=== PATIENT | male | born 1985 | race Caucasian/White ===

== ENCOUNTER 2019-08-26 11:26 | Emergency (ER) | payer OTHER ==
[2019-08-26 11:34] VITALS: BP 146/94
--- NOTE | 2019-08-26 12:08 | XRAY Report ---
Reason: pain, non traumatic Procedure Date: 08/26/2019 Accession Number: [id number] / [id number] Procedure: XR - Shoulder 3 View RT CPT Code: FULL RESULT: EXAM: RIGHT SHOULDER RADIOGRAPHY EXAM DATE: 08/26/2019 11:45 AM. CLINICAL HISTORY: Pain, non-traumatic. COMPARISON: None. TECHNIQUE: 3 views. FINDINGS: Bones: Normal. No fracture or bone lesion. Joints: The glenohumeral and acromioclavicular joints are normal. Soft tissues: The visualized hemithorax is unremarkable. No soft tissue swelling. IMPRESSION: Normal shoulder radiography. [facility]
--- NOTE | 2019-08-26 12:13 | ED Physician Documentation ---
PD HPI UPPER EXT INJURY - Stated complaint Stated Complaint: RT SHOULDER PX - Chief complaint Chief Complaint: Ext Problem - History obtained from History obtained from: Patient - History of Present Illness Location: Right (He was working out of the gym yesterday on his shoulders. It really was not bothering him until he picked up his daughter today and now has a pain across the front of the shoulder. Its minimal at rest but hurts if he lifts his arm. No significant injury per se.) Review of Systems Constitutional: denies: Fever, Chills Cardiac: reports: Reviewed and negative Respiratory: reports: Reviewed and negative PD PAST MEDICAL HISTORY - Past Medical History Past Medical History: Yes : Kidney stones - Past Surgical History Past Surgical History: Yes HEENT: Tonsil/Adenoidectomy - Present Medications Home Medications: Ambulatory Orders Medication Instructions Recorded Confirmed No Known Home Medications 12/20/13 12/20/13 - Allergies Allergies/Adverse Reactions: Allergies Allergy/AdvReac Type Severity Reaction Status Date / Time No Known Drug Allergies Allergy Verified 08/26/19 11:34 - Social History Does the pt smoke?: Yes Smoking Status: Current every day smoker Does the pt drink ETOH?: Yes Does the pt have substance abuse?: No - POLST Patient has POLST: No PD ED PE NORMAL - Vitals Vital signs reviewed: Yes - General General: Alert and oriented X 3, No acute distress - Extremities Extremities: Other (Very mild tenderness of the glenohumeral joints of the right shoulder, no deformity. He can abduct to about 90 degrees actively, does better passively. Negative supraspinatus testing, external rotation with resistance is painless but internal rotation with resistance is painful. Strength is still good though.) - Neuro Neuro: Alert and oriented X 3, Normal speech Results - Vitals Vitals: Vital Signs - 24 hr 08/26/19 11:31 Temperature 36.8 C Heart Rate 77 Respiratory 14 Rate Blood Pressure 146/94 H O2 Saturation 99 Oxygen O2 Source Room air - Rads (name of study) R shoulder XR Radiology: EMP read contemporaneously (normal) PD MEDICAL DECISION MAKING - ED course ED course: 34-year-old gentleman with right shoulder pain. Relatively atraumatic. Exam most consistent with a mild rotator cuff tendinitis. No indication for urgent x-rays as the problem will not be bony per se. He did need any pain medicine. Departure - Departure Disposition: 01 Home, Self Care Clinical Impression: Right rotator cuff tendinitis Condition: Good Record reviewed to determine appropriate education?: Yes Instructions: ED Tendinitis Rotator Cuff Comments: Do the exercises as shown, follow-up with your doctor after the weekend if not better. Return for new worsening symptoms. Ibuprofen as needed for pain. Relative rest of the right arm for at least a few days. Discharge Date/Time: 08/26/19 12:20
== END 2019-08-26 12:20 | disposition home or self-care (01) ==
LOC: ED 11:26
DX: M70.811 Other soft tissue disorders related to use, overuse and pressure, right shoulder (principal); Y93.B9 Activity, other involving muscle strengthening exercises; Y92.39 Other specified sports and athletic area as the place of occurrence of the external cause; F17.200 Nicotine dependence, unspecified, uncomplicated
CPT/HCPCS: 99282; 99283

== ENCOUNTER 2022-12-30 16:58 | Emergency (ER) | payer OTHER ==
[2022-12-30] MEDS ORDERED: AMOX/CLAV 875 MG/125 MG TABLET PO STA (18:02)
--- NOTE | 2022-12-30 18:04 | ED Physician Documentation ---
History of Present Illness - Stated complaint Stated Complaint: BILAT HAND LAC - Chief complaint Chief Complaint: Laceration - History obtained from History obtained from: Patient, Family - History of Present Illness Timing: Today Pain level max: 1 Pain level now: 1 - Additonal information Additional information: 37-year-old male presents to the emergency department complaining of a dog bite to the bilateral hands. He has a toy German garcia. There are two small punctures, one on the right hand and one on the left. Concerned about potential infection. This occurred about one hour prior to arrival. He Has an up-to-date tetanus shot. No other acute injuries. Patient is right handed. Review of Systems Constitutional: denies: Fever GI: denies: Vomiting PD PAST MEDICAL HISTORY - Past Medical History Past Medical History: No : Kidney stones - Past Surgical History Past Surgical History: Yes HEENT: Tonsil/Adenoidectomy - Present Medications Home Medications: Ambulatory Orders Medication Instructions Recorded Confirmed Amox/Clav 875/125 [Augmentin] 1 tab PO Q12H #14 tablet 12/30/22 - Allergies Allergies/Adverse Reactions: Allergies Allergy/AdvReac Type Severity Reaction Status Date / Time No Known Drug Allergies Allergy Verified 08/26/19 11:34 - Social History Does the pt smoke?: No Smoking Status: Never smoker Does the pt drink ETOH?: Yes Does the pt have substance abuse?: No - Immunizations Immunizations are current?: Yes - POLST Patient has POLST: No PD ED PE NORMAL - Vitals Vital signs reviewed: Yes - General General: Alert and oriented X 3, No acute distress - Derm Derm: Warm and dry - Extremities Extremities: Other (Small puncture wound in the web space between the second and third digit on the right hand. Also a small puncture wound on the palmar aspect of their left hand. NVI. No bony tenderness. FROM without pain.) - Neuro Neuro: Alert and oriented X 3 Results - Vitals Vitals: Vital Signs - 24 hr 12/30/22 12/30/22 17:02 18:14 Temperature 36.4 C L Heart Rate 86 91 Respiratory 16 Rate Blood Pressure 140/99 H O2 Saturation 99 Oxygen O2 Source Room air PD Medical Decision Making - ED course Complexity details: considered differential, d/w patient ED course: Wounds were cleansed and bandaged. We will place the patient on Augmentin for home. Tetanus up-to-date. Warning of infection and signs of infection were giving at bedside. No indication for xrayPatient counseled regarding signs and symptoms for which I believe an urgent reevaluation would be necessary. Patient with good understanding of and agreement to plan and is comfortable going home at this time. Departure - Departure Disposition: Home, Self Care Clinical Impression: Dog bite Qualifiers: Encounter type: initial encounter Qualified Code(s): W54.0XXA - Bitten by dog, initial encounter Condition: Good Instructions: ED Bite Dog Follow-Up: your,doctor as needed [Other] Prescriptions: Amox/Clav 875/125 [Augmentin] 1 tab PO Q12H #14 tablet Comments: Please take all antibiotics until gone. Please keep the wounds clean. Return for redness, swelling or drainage from the wound. Your prescription was sent to [facility] in [place] Discharge Date/Time: 12/30/22 18:14
[2022-12-30 18:15] VITALS: BP 140/99
== END 2022-12-30 18:14 | disposition home or self-care (01) ==
LOC: ED 16:58
DX: S61.452A Open bite of left hand, initial encounter (principal); S61.451A Open bite of right hand, initial encounter; W54.0XXA Bitten by dog, initial encounter
CPT/HCPCS: 99282; 99283; A9270

== ENCOUNTER 2023-12-15 07:17 | Day surgery (SDC) | payer OTHER ==
[2023-12-15] MEDS: LACTATED RINGERS 1,000 ML IV ONE ×2 (07:22→09:25)
[2023-12-15] MEDS ORDERED: LIDOCAINE-MPF 1% 30 ML VIAL ONE (08:13)
[2023-12-15] MEDS: LIDOCAINE 1% 50 ML MDV SUBQ ONE ×2 (08:15)
--- NOTE | 2023-12-15 08:23 | ANESTHESIA ---
Pre-Anesthesia VS, & Labs - Diagnosis DESIRES STERILIZATION - Procedure BILATERAL VASECTOMY Vital Signs: Temp Pulse Resp BP Pulse Ox O2 Flow Rate 36.4 C L 76 22 131/71 H 98 12/15/23 07:29 12/15/23 07:29 12/15/23 07:29 12/15/23 07:29 12/15/23 07:29 Height: 5 ft 9 in Weight (kg): 89 kg Body Mass Index: 29.0 BMI Classification: Overweight - NPO Last Fluid Intake: 0530 Home Medications and Allergies Home Medications: Ambulatory Orders No Known Home Medications 12/15/23 No Known Home Medications 12/15/23 Allergies/Adverse Reactions: Allergies Allergy/AdvReac Type Severity Reaction Status Date / Time No Known Drug Allergies Allergy Verified 12/15/23 07:38 Anes History & Medical History - Anesthetic History Anesthesia Complications: reports: No previous complications Family history of Anesthesia Complications: Denies Family history of Malignant Hyperthermia: Denies - Medical History Cardiovascular: reports: None Pulmonary: reports: None Gastrointestinal: reports: None Urinary: reports: Kidney stones Musculoskeletal: reports: None Endocrine/Autoimmune: reports: None Skin: reports: None Smoking Status: Never smoker Psychosocial: reports: Alcohol (OCCASIONAL) - Surgical History Eyes Ears Nose Throat (EENT): reports: Tonsil/Adenoidectomy Urologic: reports: Ureterolithotomy (stones) Results - EKG Results EKG Comparison: Reviewed EKG Exam General: Alert Dental: WNL Mouth Openin Fingerbreadth Neck Mobility: Normal Mallampati classification: I Thyromental Distance: 4-6 cm Respiratory: Lungs clear Cardiovascular: Regular rate Plan Anesthesia Type: General Consent for Procedure(s) Verified and Reviewed: Yes Code Status: Attempt Resuscitation ASA classification: 1-Healthy patient Is this case an emergency?: No
[2023-12-15] MEDS ORDERED: HYDROmorphone 0.5 MG/0.5 ML SYRINGE IVP PRN (08:30)
[2023-12-15] MEDS ORDERED: ePHEDrine 50 MG/ML VIAL IVP PRN (08:30)
[2023-12-15] MEDS ORDERED: METOCLOPRAMIDE 10 MG/2 ML VIAL IVP PRN (08:30)
[2023-12-15] MEDS ORDERED: ONDANSETRON 4 MG/2 ML VIAL IVP PRN ×2 (08:30→09:19)
[2023-12-15] MEDS ORDERED: MORPHINE 2 MG/ML CARPUJECT IVP PRN (08:30)
[2023-12-15] MEDS ORDERED: ATROPINE ABBOJECT 1 MG/10 ML SYRINGE IVP PRN (08:30)
[2023-12-15] MEDS ORDERED: NALOXONE 0.4 MG/ML VIAL IVP PRN (08:30)
[2023-12-15] MEDS ORDERED: PROPOFOL 200 MG/20 ML VIAL IVP ONE (08:32)
[2023-12-15] MEDS ORDERED: LIDOCAINE-PF 2% 10 ML AMP SUBQ ONE (08:32)
[2023-12-15] MEDS ORDERED: fentaNYL 100 MCG/2 ML VIAL ONE (08:33)
[2023-12-15] MEDS ORDERED: DEXAMETHASONE 4 MG/ML VIAL ONE (08:34)
[2023-12-15] MEDS ORDERED: MIDAZOLAM 2 MG/2 ML VIAL ONE (08:34)
[2023-12-15] MEDS ORDERED: LACTATED RINGERS 1,000 ML IV SCH (09:00)
[2023-12-15] MEDS ORDERED: HYDROcod/ACETAM 5/325 MG TABLET PO PRN (09:19)
--- NOTE | 2023-12-15 09:23 | Discharge Plan ---
Discharge Plan Problem Reviewed?: Yes Disposition: Home, Self Care Condition: Good Diet: Regular Activity Restrictions: Additional Comments (as instructed) Shower Restrictions: No Driving Restrictions: No Instruction Topics: Vasectomy No Scalpel No Smoking: If you smoke, Please STOP! Call for help. Follow-up with: ISABELLA GARCES DO [Primary Care Provider] -
--- NOTE | 2023-12-15 09:41 | OPERATIVE REPORT ---
Operative Report - General Procedure Date: 12/15/23 Planned Procedure: Bilateral Vasectomy Pre-Op Diagnosis: Elective Sterilization Procedure Performed: Bilateral Vasectomy Post Op Diagnosis: Elective Sterilization - Procedure Note Primary Surgeon: Lucius Anesthesia Provider: GABY Sanchez Anesthesia Technique: General LMA Pathology: none Estimated Blood Loss (mL): 0 Findings: uncomplicated bilateral vasectomy Complications: none - Other Other Information/Narrative: After informed consent was obtained the patient was brought to the OR and laid in the supine position. He was then anesthetized per anesthesia protocols and prepped and draped in usual sterile fashion. A formal timeout was performed reconfirming the patient, procedure and laterality. He is vas deferens and the right side was identified and 1% lidocaine was used as local in the skin and is a cord block. Using a sharp mosquito his scrotal skin was dissected and and no scalpel technique down to the vas sheath which was then grasped and isolated. The sheath was incised and the vas was grasped. It was clamped off on both sides and the intervening about 1 cm segment was cauterized away. The vas ends were also cauterized. Each of these ends were then suture-ligated using 3-0 chromic suture. The distal end was then buried using a 3-0 chromic suture. There was excellent hemostasis. The ends were d ropped back into the scrotum and the skin was closing a 3-0 chromic suture. Attention was paid to the left side and an identical procedure was performed. Band-Aids were used at the end. This concluded the procedure. Patient tolerated the procedure well and was brought to the PACU without further incident. He will go home today and will have a semen analysis in 3 months confirming sterility
[2023-12-15 10:20] VITALS: BP 136/81; O2SAT 99
--- NOTE | 2023-12-18 16:45 | ANESTHESIA POST OP EVALUATION ---
Anesthesia Post Eval - Post Anesthesia Eval Vitals: Last Vital Signs Temp 36.4 C L 12/15/23 10:15 Pulse 74 12/15/23 10:15 Resp 16 12/15/23 10:15 BP 136/81 H 12/15/23 10:15 Pulse Ox 99 12/15/23 10:15 O2 Flow Rate CV Function Including HR & BP: Stable Pain Control: Satisfactory Nausea & Vomiting: Negative Mental Status: Baseline Respiratory Status: Airway Patent Hydration Status: Satisfactory Anesthesia Complications: None
== END 2023-12-15 07:18 | disposition home or self-care (01) ==
LOC: SDS 07:17
PROVIDERS: ATTEND Urology
DX: Z30.2 Encounter for sterilization (principal); Z72.0 Tobacco use
CPT/HCPCS: 55250; J7120